=== PATIENT | male | born 1955 | race Caucasian/White ===

== ENCOUNTER 2021-10-12 10:39 | Inpatient (IN) | payer MEDICARE, OTHER ==
[~2021-10-12] VITALS: Ht 177.8 cm; Wt 117.7 kg
[2021-10-12 11:16] LABS: RED BLOOD COUNT 5.11 M/UL (4.20-5.50); WHITE BLOOD COUNT 27.1 K/UL (4.5-11.0)
[2021-10-12] MEDS ORDERED: NEURONTIN400 MG PO (13:21)
[2021-10-12] MEDS ORDERED: LOSARTAN POTAS100 MG PO (13:22)
[2021-10-12] MEDS ORDERED: HYDROCODON-ACE1 EAC6 PO (13:22)
[2021-10-12] MEDS ORDERED: METOPROLOL TAR100 MG PO (13:23)
[2021-10-12] MEDS ORDERED: OMEPRAZOLE20 M1 PO (13:25)
[2021-10-12] MEDS ORDERED: ATORVASTATIN CA40 MG PO (13:26)
[2021-10-12] MEDS ORDERED: LORATADINE10 MG PO (13:26)
[2021-10-12] MEDS ORDERED: ELIQUIS5 MG PO (13:26)
[2021-10-12 15:57] LABS: HEMOGLOBIN 13.3 gm/dl (14.0-17.5); RED BLOOD COUNT 4.76 M/UL (4.20-5.50); WHITE BLOOD COUNT 27.1 K/UL (4.5-11.0)
[2021-10-13 03:40] LABS: HEMOGLOBIN 12.7 gm/dl (14.0-17.5); RED BLOOD COUNT 4.42 M/UL (4.20-5.50)
[2021-10-14 04:06] LABS: HEMOGLOBIN 11.9 gm/dl (14.0-17.5); RED BLOOD COUNT 4.19 M/UL (4.20-5.50)
[2021-10-14 04:14] LABS: WHITE BLOOD COUNT 11.2 K/UL (4.5-11.0)
[2021-10-14 04:39] LABS: BUN/CREATININE RATIO 17 (0-10)
[2021-10-15 03:45] LABS: HEMOGLOBIN 11.9 gm/dl (14.0-17.5); RED BLOOD COUNT 4.14 M/UL (4.20-5.50); WHITE BLOOD COUNT 8.9 K/UL (4.5-11.0)
[2021-10-15 04:06] LABS: BUN/CREATININE RATIO 13 (0-10)
[2021-10-16 04:52] LABS: BUN/CREATININE RATIO 14 (0-10)
[2021-10-16 09:38] LABS: HEMOGLOBIN 12.4 gm/dl (14.0-17.5); RED BLOOD COUNT 4.41 M/UL (4.20-5.50)
[2021-10-16 09:41] LABS: WHITE BLOOD COUNT 11.5 K/UL (4.5-11.0)
[2021-10-16] MEDS ORDERED: PROVENTIL HFA6.7 GM INH (12:46)
[2021-10-16] MEDS ORDERED: OMNICEF 300 MG300 MG PO (12:46)
[2021-10-16] MEDS ORDERED: MUCINEX DM ER1 EAC1 PO (12:46)
== END 2021-10-16 14:20 | disposition home or self-care (01) | DRG 871 ==
LOC: ER1 10:39 → CDU 12:23 → PROG CARE 12:23 → CDU 12:23 → PROG CARE 19:06
PROVIDERS: Internal Medicine; Physician Assistant; Physician Assistant Medical; ADMIT Internal Medicine
DX: A41.9 Sepsis, unspecified organism (principal); J18.9 Pneumonia, unspecified organism; J96.01 Acute respiratory failure with hypoxia; R65.21 Severe sepsis with septic shock; Z20.822 Contact with and (suspected) exposure to COVID-19; I11.0 Hypertensive heart disease with heart failure; E66.9 Obesity, unspecified; G47.33 Obstructive sleep apnea (adult) (pediatric); I50.9 Heart failure, unspecified; F17.200 Nicotine dependence, unspecified, uncomplicated; Z96.653 Presence of artificial knee joint, bilateral; Z88.0 Allergy status to penicillin; Z79.899 Other long term (current) drug therapy; Z79.01 Long term (current) use of anticoagulants; Z71.6 Tobacco abuse counseling; Z68.37 Body mass index [BMI] 37.0-37.9, adult
CPT/HCPCS: 0240U; 36415; 36600; 71045; 80053; 80202; 81001; 82550; 82553; 82803; 83605; 83735; 83874; 83880; 84484; 85025; 85027; 87040; 87086; 93005; 94664; 96374; 99285; J0360; J0692; J1956; J3370; J7030; J7070